=== PATIENT | female | born 1940 | race Caucasian/White ===

== ENCOUNTER 2024-03-02 15:20 | Emergency (ER) | payer OTHER ==
[~2024-03-02] VITALS: Ht 162.6 cm; Wt 49.9 kg
[2024-03-02 16:57] VITALS: BP 123/77; O2SAT 93
== END 2024-03-02 16:58 | disposition left against medical advice (07) ==
LOC: ER 15:23
DX: R21 Rash and other nonspecific skin eruption (principal); J44.9 Chronic obstructive pulmonary disease, unspecified; Z87.891 Personal history of nicotine dependence
CPT/HCPCS: A4606; A4663